=== PATIENT | male | born 1955 | race Caucasian/White ===

== ENCOUNTER 2022-10-17 15:34 | Emergency (ER) | payer MEDICARE ==
[2022-10-17 15:40] VITALS: TEMP 98.3
--- NOTE | 2022-10-17 16:06 | ED ---
General Adult HPI - General Chief complaint: Shortness of Breath Stated complaint: fall Time Seen by Provider: 10/17/22 15:44 Source: patient Mode of arrival: EMS Limitations: no limitations - History of Present Illness Initial comments: Dictation was produced using [employer] dictation software. please excuse any grammatical, word or spelling errors. Chief Complaint: 67-year-old male presents emergency department after fall History of Present Illness: He is 67-year-old male presents to the emergency department after fall. Patient has history of stroke. His been suffering more more falls as of late. Granddaughter at the bedside provides history present illness states that he takes that her confused words. She went to check on him today so there was a bunch of blood everywhere in his house. Patient had fallen 2 nights ago where he fell on landed on his nose. Patient at the bedside feels stable. He does not have any complaints. Denies any loss of consciousness. Granddaughter is concerned about his well-being considering that he's been falling more and injured himself more. The ROS documented in this emergency department record has been reviewed and confirmed by me. Those systems with pertinent positive or negative responses have been documented in the HPI. All other systems are other negative and/or noncontributory. PHYSICAL EXAM: General Impression: Alert and oriented x3, not in acute distress HEENT: Swollen nose with a 5 mm laceration to the bridge,no active bleeding extra-ocular movements intact, pupils equal and reactive to light bilaterally, mucous membranes moist. Cardiovascular: Heart regular rate and rhythm Chest: Able to complete full sentences, no retractions, no tachypnea Abdomen: abdomen soft, non-tender, non-distended, no organomegaly Musculoskeletal: Pulses present and equal in all extremities, no peripheral edema Motor: no focal deficits noted Neurological: CN II-XII grossly intact, no focal motor or sensory deficits noted Skin: Intact with no visualized rashes Psych: Normal affect and mood ED course: 67-year-old male with past medical history stroke and frequent falls presents emergency department after fall. Fall occurred 2 days ago. He has a laceration of his nose. Given its been approximately 48 hours since the fall laceration will not be a period. Laceration edges seem to approximate very well. Vital signs Upon arrival are within acceptable limits. Nursing notes and chart review was performed My EKG interpretation: Ventricular rate 75, sinus rhythm, WI interval 21, QRS 89, QTC 393. No WI prolongation, no QTC prolongation, no ST or T-wave changes noted. Overall, this EKG is unremarkable Facial CT unremarkable. Computed tomography scan of the head and C-spine shows no acute processes. Laboratory evaluation obtained. Hemoglobin is 9.7 is unclear what patient's baseline is. Coag panel on metabolic panel is unremarkable. Abdominal labs negative.Patient stable. He is agreeable for discharge. Granddaughter states that home health care will be starting soon. Was pt. sent in by a medical professional or institution (, [facility], INTERNAL MEDICINE HOSPITALIST, urgent care, hospital, or shelter...) When possible be specific @ -No Did you speak to anyone other than the patient for history (EMS, parent, family, police, friend...)? What history was obtained from this source @ -Granddaughter Did you review nursing and triage notes (agree or disagree)? Why? @ -I reviewed and agree with nursing and triage notes Were old charts reviewed (outside hosp., previous admission, EMS record, old EKG, old radiological studies, urgent care reports/EKG's, shelter records)? Report findings @ -No old charts were reviewed Differential Diagnosis (chest pain, altered mental status, abdominal pain women, abdominal pain men, vaginal bleeding, weakness, fever, dyspnea, syncope, headach e, dizziness, GI bleed, back pain, seizure, CVA, palpatations, mental health)? @ -not applicable EKG interpreted by me (3pts min.). @ -As above X-rays interpreted by me (1pt min.). @ -As above CT interpreted by me (1pt min.). @ -As above U/S interpreted by me (1pt. min.). @ -None done What testing was considered but not performed or refused? (CT, X-rays, U/S, labs)? Why? @ -None What meds were considered but not given or refused? Why? @ -None Did you discuss the management of the patient with other professionals (professionals i.e. [facility], INTERNAL MEDICINE HOSPITALIST, lab, RT, psych nurse, perinatal social worker, insurance administrative assistant, teacher, space officer, case packer and sealer)? Give summary @ -No Was smoking cessation discussed for >3mins.? @ -No Was critical care preformed (if so, how long)? @ -No Were there social determinants of health that impacted care today? How? (Homelessness, low income, unemployed, alcoholism, drug addiction, transportation, low edu. Level, literacy, decrease access to med. care, senior living, rehab)? @ -Debility, history of stroke, lives at home by himself Was there de-escalation of care discussed even if they declined (Discuss DNR or withdrawal of care, Hospice)? DNR status @ -No What co-morbidities impacted this encounter? (DM, HTN, Smoking, COPD, CAD, Cancer, CVA, ARF, Chemo, Hep., AIDS, mental health diagnosis, sleep apnea, morbid obesity)? @ -None Was patient admitted / discharged? Hospital course, mention meds given and route, prescriptions, significant lab abnormalities, going to OR and other pertinent info. @ -See above Undiagnosed new problem with uncertain prognosis? @ -No Drug Therapy requiring intensive monitoring for toxicity (Heparin, Nitro, Insulin, Cardizem)? @ -No Were any procedures done? @ -No Diagnosis/symptom? @ -Frequent falls, facial contusion Acute, or Chronic, or Acute on Chronic? @ -default Uncomplicated (without systemic symptoms) or Complicated (systemic symptoms)? @ -default Side effects of treatment? @ -No Exacerbation, Progression, or Severe Exacerbation? @ -No Poses a threat to life or bodily function? How? (Chest pain, [place], [place], pneumonia, PE, COPD, DKA, ARF, appy, cholecystitis, CVA, Diverticulitis, Homicidal, Suicidal, threat to staff... and all critical care pts) @ -Yes - Related Data Allergies Allergy/AdvReac Type Severity Reaction Status Date / Time No Known Allergies Allergy Verified 10/17/22 15:39 Review of Systems ROS Statement: Those systems with pertinent positive or pertinent negative responses have been documented in the HPI. ROS Other: All systems not noted in ROS Statement are negative. Past Medical History Past Medical History: CVA/TIA, Hyperlipidemia, Hypertension History of Any Multi-Drug Resistant Organisms: None Reported Past Surgical History: No Surgical Hx Reported Past Psychological History: No Psychological Hx Reported Smoking Status: Never smoker Past Alcohol Use History: None Reported Past Drug Use History: None Reported General Exam Limitations: no limitations Course Vital Signs 10/17/22 15:35 Temperature 98.3 F Pulse Rate 83 Respiratory 16 Rate Blood Pressure 126/81 O2 Sat by Pulse 97 Oximetry Medical Decision Making - Lab Data Result diagrams: 10/17/22 16:02 10/17/22 16:02 Lab Results 10/17/22 10/17/22 10/17/22 Range/Units 16:02 16:02 16:02 WBC 8.4 (3.8-10.6) k/uL RBC 3.24 L (4.30-5.90) m/uL Hgb 9.7 L (13.0-17.5) gm/dL Hct 29.3 L (39.0-53.0) % MCV 90.3 (80.0-100.0) fL MCH 29.8 (25.0-35.0) pg MCHC 33.0 (31.0-37.0) g/dL RDW 13.9 (11.5-15.5) % Plt Count 254 (150-450) k/uL MPV 7.1 Neutrophils % 75 % Lymphocytes % 17 % Monocytes % 5 % Eosinophils % 0 % Basophils % 0 % Neutrophils # 6.3 (1.3-7.7) k/uL Lymphocytes # 1.5 (1.0-4.8) k/uL Monocytes # 0.4 (0-1.0) k/uL Eosinophils # 0.0 (0-0.7) k/uL Basophils # 0.0 (0-0.2) k/uL PT 10.6 (9.0-12.0) sec INR 1.0 (<1.2) APTT 22.4 (22.0-30.0) sec Sodium 137 (137-145) mmol/L Potassium 4.7 (3.5-5.1) mmol/L Chloride 110 H (98-107) mmol/L Carbon Dioxide 20 L (22-30) mmol/L Anion Gap 7 mmol/L BUN 33 H (9-20) mg/dL Creatinine 1.22 (0.66-1.25) mg/dL Est GFR (CKD-EPI)AfAm 71 (>60 ml/min/1.73 sqM) Est GFR (CKD-EPI)NonAf 61 (>60 ml/min/1.73 sqM) Glucose 113 H (74-99) mg/dL Plasma Lactic Acid Sebastian (0.7-2.0) mmol/L Calcium 9.0 (8.4-10.2) mg/dL Magnesium 2.1 (1.6-2.3) mg/dL Total Bilirubin 0.5 (0.2-1.3) mg/dL AST 33 (17-59) U/L ALT 30 (4-49) U/L Alkaline Phosphatase 55 (38-126) U/L Total Protein 6.7 (6.3-8.2) g/dL Albumin 4.2 (3.5-5.0) g/dL 10/17/22 Range/Units 17:40 WBC (3.8-10.6) k/uL RBC (4.30-5.90) m/uL Hgb (13.0-17.5) gm/dL Hct (39.0-53.0) % MCV (80.0-100.0) fL MCH (25.0-35.0) pg MCHC (31.0-37.0) g/dL RDW (11.5-15.5) % Plt Count (150-450) k/uL MPV Neutrophils % % Lymphocytes % % Monocytes % % Eosinophils % % Basophils % % Neutrophils # (1.3-7.7) k/uL Lymphocytes # (1.0-4.8) k/uL Monocytes # (0-1.0) k/uL Eosinophils # (0-0.7) k/uL Basophils # (0-0.2) k/uL PT (9.0-12.0) sec INR (<1.2) APTT (22.0-30.0) sec Sodium (137-145) mmol/L Potassium (3.5-5.1) mmol/L Chloride (98-107) mmol/L Carbon Dioxide (22-30) mmol/L Anion Gap mmol/L BUN (9-20) mg/dL Creatinine (0.66-1.25) mg/dL Est GFR (CKD-EPI)AfAm (>60 ml/min/1.73 sqM) Est GFR (CKD-EPI)NonAf (>60 ml/min/1.73 sqM) Glucose (74-99) mg/dL Plasma Lactic Acid Sebastian 0.9 (0.7-2.0) mmol/L Calcium (8.4-10.2) mg/dL Magnesium (1.6-2.3) mg/dL Total Bilirubin (0.2-1.3) mg/dL AST (17-59) U/L ALT (4-49) U/L Alkaline Phosphatase (38-126) U/L Total Protein (6.3-8.2) g/dL Albumin (3.5-5.0) g/dL Disposition Clinical Impression: Frequent falls Disposition: HOME SELF-CARE Condition: Good Instructions (If sedation given, give patient instructions): Fall Prevention for Older Adults (ED) Is patient prescribed a controlled substance at d/c from ED?: No Referrals: Luis Enrique Zarate MD [Primary Care Provider] - 1-2 days Time of Disposition: 18:57
[2022-10-17 16:26] LABS: Basophils % (A) 0 %; Eosinophils % (A) 0 %; HCT 29.3 % (39.0-53.0); HGB 9.7 gm/dL (13.0-17.5); Lymphocytes # (A) 1.5 k/uL (1.0-4.8); Lymphocytes % (A) 17 %; MCH 29.8 pg (25.0-35.0); MCV 90.3 fL (80.0-100.0); Mean Platelet Volume 7.1; Monocytes # (A) 0.4 k/uL (0-1.0); Monocytes % (A) 5 %; Neutrophils # (A) 6.3 k/uL (1.3-7.7); Neutrophils % (A) 75 %; Platelet Count 254 k/uL (150-450); RBC 3.24 m/uL (4.30-5.90); RDW 13.9 % (11.5-15.5); WBC 8.4 k/uL (3.8-10.6)
[2022-10-17 16:32] LABS: Albumin 4.2 g/dL (3.5-5.0); Total Bilirubin 0.5 mg/dL (0.2-1.3); Total Protein 6.7 g/dL (6.3-8.2)
[2022-10-17 16:39] LABS: Partial Thromboplastin Time 22.4 sec (22.0-30.0); Prothrombin Time 10.6 sec (9.0-12.0)
[2022-10-17 16:40] LABS: Magnesium 2.1 mg/dL (1.6-2.3); Potassium 4.7 mmol/L (3.5-5.1)
--- NOTE | 2022-10-17 17:09 | CT ---
EXAMINATION TYPE: CT brain drake palumbo con DATE OF EXAM: 10/17/2022 COMPARISON: None HISTORY: Fall, hit nose, lots of blood loss. CT DLP: 1260.1 mGycm Automated exposure control for dose reduction was used. Images of the brain and cervical spine obtained with no contrast. There is mild cerebral atrophy. There is no mass effect or midline shift. No sign of intracranial hem orrhage. The calvarium is intact. Skull base is intact. There is normal aeration of the mastoid sinus es. There is small mucous retention cyst in the maxillary sinuses. The cervical vertebra have normal alignment. There is degenerative disc space narrowing from C3 to T1 with spurring of the endplates. Posterior elements are intact. No compression fracture. Prevertebral soft tissues are intact. Sella turcica is normal. IMPRESSION: Multilevel cervical spondylotic changes. No fracture. Mild cerebral atrophy. No acute intracranial abnormality.
--- NOTE | 2022-10-17 17:12 | CT ---
EXAMINATION TYPE: CT facial bones wo con DATE OF EXAM: 10/17/2022 COMPARISON: None HISTORY: Fall, hit nose, lots of blood loss. CT DLP: 1260.1 mGycm Automated exposure control for dose reduction was used. Images obtained from the bottom of the mandible to the top of the frontal sinuses with no contrast. The mandibular ring is intact. Temporomandibular joints are intact. There is normal aeration of the m astoid sinuses. The temporal bones are intact. There is rounded densities at the floor of the maxilla ry sinuses consistent with mucous retention cysts. The maxilla is intact. Orbital margins are intact. No evidence of orbital blowout fracture. There is some lucency around the upper incisors of the righ t side of the maxilla consistent with periodontal disease. There are multiple missing teeth. The maxi llary spine is intact. No evidence of nasal bone fracture. No evidence of retro-orbital mass. There i s normal aeration of the frontal and ethmoid and sphenoid sinuses. IMPRESSION: No evidence of acute traumatic injury of the facial bones.
[2022-10-17 19:07] VITALS: BP 111/72; PULSE 71; RESP 20
== END 2022-10-17 19:10 | disposition home or self-care (01) ==
LOC: EC 15:34
DX: S09.92XA Unspecified injury of nose, initial encounter (principal); R29.6 Repeated falls; M47.812 Spondylosis without myelopathy or radiculopathy, cervical region; I10 Essential (primary) hypertension; I63.9 Cerebral infarction, unspecified; W01.0XXA Fall on same level from slipping, tripping and stumbling without subsequent striking against object, initial encounter; Y92.002 Bathroom of unspecified non-institutional (private) residence as the place of occurrence of the external cause
CPT/HCPCS: 36415; 70450; 70486; 72125; 80053; 83605; 83735; 85025; 85610; 85730; 93005; 99285

== ENCOUNTER → 2022-11-05 | Outpatient (CLI) | payer MEDICARE ==
[2022-11-05 18:23] LABS: HCT 36.1 % (39.6-50.0); HGB 11.2 g/dL (13.0-17.0); MCH 30.3 pg (27.0-32.0); MCV 97.6 fL (80.0-97.0); Mean Platelet Volume 8.4 fL (9.5-12.2); NRBC Per 100 WBC 0 /100 WBCS (0.0-0.0); Platelet Count 329 X 10*3/uL (140-440); RDW 14.3 % (11.5-14.5); WBC 5.32 X 10*3/uL (4.50-10.00)
[2022-11-05 18:52] LABS: ALT 15 U/L (10-49); AST 15 U/L (14-35); African American GFR (CKD) 65.4 (60.0-200.0); Albumin 4.5 g/dL (3.8-4.9); Albumin/Globulin Ratio 1.96 (1.60-3.17); Alkaline Phosphatase 70 U/L (41-126); BUN/Creat Ratio 17.85 Ratio (12.00-20.00); Blood Urea Nitrogen 23.2 mg/dL (9.0-27.0); Calcium 9.6 mg/dL (8.7-10.3); Carbon Dioxide 24.4 mmol/L (20.0-27.5); Chloride 109 mmol/L (96-109); Chol/HDL Ratio 3.86 Ratio; Globulin 2.3 g/dL (1.6-3.3); Glucose 98 mg/dL (70-110); LDL Cholesterol,Calculated 79.1 mg/dL (0.0-131.0); Non-African American GFR(CKD) 56.5 (60.0-200.0); Potassium 4.8 mmol/L (3.5-5.5); Sodium 142 mmol/L (135-145); Total Protein 6.8 g/dL (6.2-8.2)
== END | disposition home or self-care (01) ==
LOC: LABWHC1 11:35
PROVIDERS: ATTEND Internal Medicine
DX: Z12.5 Encounter for screening for malignant neoplasm of prostate (principal); I10 Essential (primary) hypertension; E78.5 Hyperlipidemia, unspecified; R42 Dizziness and giddiness
CPT/HCPCS: 36415; 80053; 80061; 84153; 84443; 85027

== ENCOUNTER → 2024-06-19 | Outpatient (CLI) | payer MEDICARE ==
--- NOTE | 2024-06-19 18:46 | CT ---
EXAMINATION TYPE: CT brain wo con DATE OF EXAM: 06/19/2024 COMPARISON: 10/17/2022 INDICATION: AMS: Lack of balance and confusion x3 years. Priors in PACS DLP: 1047.1 mGycm, Automated exposure control for dose reduction was used. CONTRAST: None CT of the brain is performed utilizing 3 mm thick sections through the posterior fossa and 3 mm thick sections through the remaining calvarium. Study is performed within 24 hours of arrival to the hosp ital. No abnormal hyperdensity is present to suggest an acute intracranial hemorrhage. No mass lesion is evident. Calcifications along the anterior falx, calcified meningioma could be cons idered. No acute infarcts are evident. Ventricles and sulci are mild prominent for the patient age. A cavum septum lucidum and cavum vergae remain present. Air-fluid levels may be within the maxillary sinuses. Correlate for acute sinusitis. Remaining parana myriam sinuses are clear. Mastoid air cells are clear. IMPRESSION: 1. No acute intracranial process. Follow up MRI can be performed as clinically indicated. 2. Atrophy. 3. Clinical correlation for acute bilateral maxillary sinusitis. [facility], , 06/19/2024 6:44 PM
== END | disposition home or self-care (01) ==
LOC: RADCTMAIN 17:50
PROVIDERS: ATTEND Family Medicine
DX: R41.82 Altered mental status, unspecified (principal); R26.81 Unsteadiness on feet; R47.9 Unspecified speech disturbances; J01.00 Acute maxillary sinusitis, unspecified; G31.9 Degenerative disease of nervous system, unspecified
CPT/HCPCS: 70450

== ENCOUNTER → 2024-08-09 | Outpatient (CLI) | payer MEDICARE ==
--- NOTE | 2024-08-09 19:21 | MR ---
EXAMINATION TYPE: MR brain wo con DATE OF EXAM: 08/09/2024 5:56 PM COMPARISON: 06/19/2024. CLINICAL INDICATION: Male, 69 years old with history of R47.01 EXPRESSIVE APHASIA R26.81 UNSTEADY GAI T; PHH, Expressive aphasia, Unsteady gait, Memory and speech issues, vision changes, Dizziness, Fall ing, TECHNIQUE: Multi planar, multi sequence imaging was performed through the brain including: T1, T2, In version recovery, Diffusion weighted imaging, and gradient echo imaging. No gadolinium was given. FINDINGS: Cavum septum pellucidum. The friend-white junctions, ventricular system, basal cisterns appea r unremarkable. Scattered foci of high T2 signal intensity are seen within the periventricular whit e matter. Midline structures show no abnormality. Diffusion-weighted imaging shows no evidence of res tricted diffusion. The susceptibility weighted images do not reveal any evidence for micro-hemorrhage . The bone marrow signal is within normal limits. Paranasal sinuses and mastoid air cells: No significant paranasal sinus disease. Visualized orbits: Orbital contents are intact. IMPRESSION: 1. No evidence of intracranial mass or acute/subacute infarct. 2. Nonspecific white matter changes, likely secondary to small vessel ischemic disease. 3. Stable dilation of the ventricular system with cavum septum pellucidum. [facility], , 08/09/2024 7:18 PM
== END | disposition home or self-care (01) ==
LOC: RADMRIMAIN 16:55
PROVIDERS: ATTEND Family Medicine
DX: R47.01 Aphasia (principal); R26.81 Unsteadiness on feet; I67.82 Cerebral ischemia
CPT/HCPCS: 70551